=== PATIENT | male | born 1955 | race Caucasian/White ===

== ENCOUNTER → 2025-02-05 12:33 | Outpatient (REF) | payer MEDICARE, SELFPAY ==
[2025-02-05 12:50] VITALS: BP 140/77; BP_SYST 56
[2025-02-05 13:50] VITALS: BP 133/71
== END ==
LOC: RADI 12:33
PROVIDERS: ATTENDING PHYSICIAN Internal Medicine Hematology & Oncology; FAMILY PHYSICIAN Nurse Practitioner Family
DX: Z45.2 Encounter for adjustment and management of vascular access device (principal); C18.2 Malignant neoplasm of ascending colon
CPT/HCPCS: 36590; 77001